=== PATIENT | male | born 1975 | race Hispanic/Latino ===

== ENCOUNTER 2017-07-24 10:18 | Emergency (ER) | payer OTHER ==
--- NOTE | 2017-07-24 13:04 | ER ---
Nurse's Notes [facility] Name: Silvestre Summers Age: 41 yrs Sex: Male : 1975 Arrival Date: 07/24/2017 Time: 10:24 Bed 19 Private MD: Diagnosis: Vertiginous syndromes in diseases classified elsewhere, bilateral Presentation: 07/24 10:38 Presenting complaint: Patient states: south k[place] speaking only; Monday, i started having hj headache, and dizziness; especially when i get off the bed in the morning; denies nausea and vomiting;. Transition of care: patient was not received from another setting of care. Onset of symptoms was July 24, 2017. Care prior to arrival: None. 10:38 Method Of Arrival: Ambulatory 10:38 Acuity: FAMILIA 3 hj Triage Assessment: 10:40 Headache History: Denies prior headaches. General: Appears in no apparent distress. hj uncomfortable, Behavior is calm, cooperative, appropriate for age. Pain: Complains of pain in head Pain Pain began 2-3 days ago. Also complains of. Neuro: Level of Consciousness is awake, alert, obeys commands, Oriented to person, place, time, situation. Historical: - Allergies: 10:40 No Known Allergies; hj - Home Meds: 10:44 atorvastatin 40 mg oral tab 1 tab once daily [Active]; stugeron forte daily [Active]; hj vontrol daily [Active]; - PMHx: 10:44 Hyperlipidemia; hj - PSHx: 10:44 None; hj - Immunization history:: Adult Immunizations up to date. - Social history:: Smoking status: Patient/guardian denies using tobacco. - Family history:: not pertinent. Screenin:55 Abuse screen: Denies threats or abuse. Nutritional screening: No deficits noted. em Tuberculosis screening: No symptoms or risk factors identified. Fall Risk None identified. Assessment: 11:55 General: Appears in no apparent distress. comfortable, Behavior is calm, cooperative, em appropriate for age. Pain: Denies pain. Neuro: Level of Consciousness is awake, alert, obeys commands, Oriented to person, place, time, situation, Appropriate for age Head Charger are equal bilaterally Gait is steady, Speech is normal, Facial symmetry appears normal, Intact Reports dizziness, since Monday, was given some medications from [place], helped a little. Cardiovascular: Capillary refill < 3 seconds Patient's skin is warm and dry. Respiratory: Airway is patent Respiratory effort is even, unlabored, Respiratory pattern is regular, symmetrical. GI: Abdomen is round Patient currently denies nausea, vomiting. : No signs and/or symptoms were reported regarding the genitourinary system. EENT: No signs and/or symptoms were reported regarding the EENT system. Derm: Skin is intact, Skin is pink, warm \T\ dry. Musculoskeletal: Range of motion: intact in all extremities. 12:05 Reassessment: Patient appears in no apparent distress at this time. I agree with above iw assessment by Justin Magana LVN. 12:56 Reassessment: Patient appears in no apparent distress at this time. Patient and/or em family updated on plan of care and expected duration. Pain level reassessed. Patient is alert, oriented x 3, equal unlabored respirations, skin warm/dry/pink. Patient denies pain at this time. 13:13 Reassessment: Patient and/or family updated on plan of care and expected duration. Pain em level reassessed. Patient is alert, oriented x 3, equal unlabored respirations, skin warm/dry/pink. awaiting CT results before discharging pt Patient states symptoms have improved. 14:00 Reassessment: Patient appears in no apparent distress at this time. Patient and/or em family updated on plan of care and expected duration. Pain level reassessed. Patient denies pain at this time. Patient states feeling better. Patient states symptoms have improved. Vital Signs: 10:44 BP 129 / 92; Pulse 79; Resp 18; Temp 97.5(TE); Pulse Ox 100% on R/A; Weight 108.86 kg; hj Height 6 ft. 0 in. (182.88 cm); Pain 3/10; 13:05 BP 125 / 95; Pulse 68; Resp 18; Pulse Ox 99% on R/A; em 14:00 BP 120 / 97; Pulse 64; Resp 16; Temp 98.3(TE); Pulse Ox 99% on R/A; Pain 0/10; em 10:44 Body Mass Index 32.55 (108.86 kg, 182.88 cm) ED Course: 10:24 Patient arrived in ED. mr 10:39 Triage completed. hj 10:40 Arm band placed on left wrist. hj 11:37 Justin Magana LVN is Primary Nurse. em 11:39 Kieran Hagen MD is Attending Physician. [facility] 11:55 Patient has correct armband on for positive identification. Bed in low position. Call em light in reach. Side rails up X2. 12:25 No provider procedures requiring assistance completed. em 13:03 Ismael Cole MD is Referral Physician. [facility] 13:15 CT completed. Patient tolerated procedure well. Patient moved to CT via wheelchair. Patient moved back from CT. 13:15 CT Head Brain wo Cont In Process Unspecified. EDMS 14:13 Patient did not have IV access during this emergency room visit. em Administered Medications: 13:10 Drug: Meclizine 50 mg Route: PO; em 13:42 Follow up: Response: No adverse reaction em Outcome: 13:03 Discharge ordered by . [facility] 14:13 Discharged to home ambulatory. em 14:13 Condition: good 14:13 Discharge instructions given to patient, Instructed on discharge instructions, follow up and referral plans. medication usage, Demonstrated understanding of instructions, follow-up care, medications, Prescriptions given X 1. 14:14 Patient left the ED. em Signatures: Dispatcher [employer] EDOR Kieran Hagen MD MD cha Rivera, Maria Angela Miller Justin Magana LVN LVN em Hoa Cook, RN KAR Shabbir Juarez RN RN
--- NOTE | 2017-07-24 13:04 | EDPHYS ---
Physician Documentation [facility] Name: Silvestre Summers Age: 41 yrs Sex: Male : 1975 Arrival Date: 07/24/2017 Time: 10:24 Bed 19 Private MD: DOMINIC Physician Kieran Hagen HPI: 07/24 12:59 This 41 yrs old Male presents to ER via Ambulatory with complaints of agnes Dizziness, Headache. 12:59 The patient presents with dizziness, vertigo. Onset: The symptoms/episode agnes began/occurred 3 day(s) ago. Context: occurred at home. Modifying factors: The symptoms are alleviated by Antivert, the symptoms are aggravated by movement of head, changing position. Associated signs and symptoms: Pertinent positives: headache, nausea. Severity of symptoms: At their worst the symptoms were mild in the emergency department the symptoms are unchanged. Patient's baseline: Neuro: alert and fully oriented. The patient has experienced similar episodes in the past, a few times. Historical: - Allergies: 10:40 No Known Allergies; hj - Home Meds: 10:44 atorvastatin 40 mg oral tab 1 tab once daily [Active]; stugeron forte daily [Active]; hj vontrol daily [Active]; - PMHx: 10:44 Hyperlipidemia; hj - PSHx: 10:44 None; hj - Immunization history:: Adult Immunizations up to date. - Social history:: Smoking status: Patient/guardian denies using tobacco. - Family history:: not pertinent. ROS: 12:59 Constitutional: Negative for fever, chills, and weight loss, Eyes: Negative for injury, agnes pain, redness, and discharge, ENT: Negative for injury, pain, and discharge, Neck: Negative for injury, pain, and swelling, Cardiovascular: Negative for chest pain, palpitations, and edema, Respiratory: Negative for shortness of breath, cough, wheezing, and pleuritic chest pain, Abdomen/GI: Negative for abdominal pain, nausea, vomiting, diarrhea, and constipation, Back: Negative for injury and pain, : Negative for injury, bleeding, discharge, and swelling, MS/Extremity: Negative for injury and deformity, Skin: Negative for injury, rash, and discoloration, Psych: Negative for depression, anxiety, suicide ideation, homicidal ideation, and hallucinations, Allergy/Immunology: Negative for hives, rash, and allergies, Endocrine: Negative for neck swelling, polydipsia, polyuria, polyphagia, and marked weight changes, Hematologic/Lymphatic: Negative for swollen nodes, abnormal bleeding, and unusual bruising. 12:59 Neuro: Positive for dizziness, headache, tinnitus. Exam: 12:59 Constitutional: This is a well developed, well nourished patient who is awake, alert, agnes and in no acute distress. Head/Face: Normocephalic, atraumatic. Eyes: Pupils equal round and reactive to light, extra-ocular motions intact. Lids and lashes normal. Conjunctiva and sclera are non-icteric and not injected. Cornea within normal limits. Periorbital areas with no swelling, redness, or edema. ENT: Nares patent. No nasal discharge, no septal abnormalities noted. Tympanic membranes are normal and external auditory canals are clear. Oropharynx with no redness, swelling, or masses, exudates, or evidence of obstruction, uvula midline. Mucous membranes moist. Neck: Trachea midline, no thyromegaly or masses palpated, and no cervical lymphadenopathy. Supple, full range of motion without nuchal rigidity, or vertebral point tenderness. No Meningismus. Chest/axilla: Normal chest wall appearance and motion. Nontender with no deformity. No lesions are appreciated. Cardiovascular: Regular rate and rhythm with a normal S1 and S2. No gallops, murmurs, or rubs. Normal PMI, no JVD. No pulse deficits. Respiratory: Lungs have equal breath sounds bilaterally, clear to auscultation and percussion. No rales, rhonchi or wheezes noted. No increased work of breathing, no retractions or nasal flaring. Abdomen/GI: Soft, non-tender, with normal bowel sounds. No distension or tympany. No guarding or rebound. No evidence of tenderness throughout. Back: No spinal tenderness. No costovertebral tenderness. Full range of motion. Male : Normal genitalia with no discharge or lesions. Skin: Warm, dry with normal turgor. Normal color with no rashes, no lesions, and no evidence of cellulitis. MS/ Extremity: Pulses equal, no cyanosis. Neurovascular intact. Full, normal range of motion. Neuro: Awake and alert, GCS 15, oriented to person, place, time, and situation. Cranial nerves II-XII grossly intact. Motor strength 5/5 in all extremities. Sensory grossly intact. Cerebellar exam normal. Normal gait. Psych: Awake, alert, with orientation to person, place and time. Behavior, mood, and affect are within normal limits. Vital Signs: 10:44 BP 129 / 92; Pulse 79; Resp 18; Temp 97.5(TE); Pulse Ox 100% on R/A; Weight 108.86 kg; hj Height 6 ft. 0 in. (182.88 cm); Pain 3/10; 13:05 BP 125 / 95; Pulse 68; Resp 18; Pulse Ox 99% on R/A; em 14:00 BP 120 / 97; Pulse 64; Resp 16; Temp 98.3(TE); Pulse Ox 99% on R/A; Pain 0/10; em 10:44 Body Mass Index 32.55 (108.86 kg, 182.88 cm) MDM: 11:39 Patient medically screened. [facility] 07/24 13:07 Order name: Urine Dipstick--Ancillary (enter results) 07/24 12:59 Order name: CT Head Brain wo Cont; Complete Time: 13:34 [facility] Administered Medications: 13:10 Drug: Meclizine 50 mg Route: PO; em 13:42 Follow up: Response: No adverse reaction em Disposition: 07/24/17 13:03 Discharged to Home. Impression: Vertiginous syndromes in diseases classified elsewhere, bilateral. - Condition is Stable. - Discharge Instructions: General Headache Without Cause, Vertigo, Vertigo, [id number], General Headache Without Cause, [id number]. - Prescriptions for Meclizine 25 mg Oral Tablet - take 1 tablet by ORAL route every 8 hours As needed; 30 tablet. - Medication Reconciliation Form, Thank You Letter, Antibiotic Education, Prescription Opioid Use, Work release form form. - Follow up: Private Physician; When: 2 - 3 days; Reason: Recheck today's complaints, Continuance of care, Re-evaluation by your physician. Follow up: Ismael Cole MD; When: 2 - 3 days; Reason: Recheck today's complaints, Continuance of care, Re-evaluation by your physician. - Problem is new. - Symptoms have improved. Signatures: Dispatcher [employer] Kieran Bowman MD MD cha Munoz, Edgar, LIQUIFIED NATURAL GAS SPECIALIST LIQUIFIED NATURAL GAS SPECIALIST em Shabbir Juarez, RN RN hj
[2017-07-24] MEDS ORDERED: MECLIZINE HCL 12.5 MG TAB ONE (13:20)
--- NOTE | 2017-07-24 13:28 | RAD REPORT ---
EXAM DESCRIPTION: CT - Head Brain Wo Cont - 07/24/2017 1:15 pm CLINICAL HISTORY: Headache and dizziness COMPARISON: None. TECHNIQUE: Computed axial tomography of the head was obtained. IV contrast was not requested. All CT scans are performed using dose optimization technique as appropriate and may include automated exposure control or mA/KV adjustment according to patient size. FINDINGS: An intracranial bleed is not seen . The ventricles are normal in caliber. No extra-axial fluid collection is noted. Fluid within the sinuses/ mastoids is not seen. IMPRESSION: No acute intracranial abnormality is seen. If patient's symptoms persist MRI of the bra in would be recommended.
[2017-07-24 14:02] LABS: Urine Blood NEGATIVE (NEG); Urine Glucose NEGATIVE (NEG); Urine Protein NEGATIVE (NEG); Urine Specific Gravity 1.015 (1.005-1.030)
== END 2017-07-24 14:14 | disposition home or self-care (01) ==
LOC: ER 10:18
DX: H81.93 Unspecified disorder of vestibular function, bilateral (principal); R51 Headache; E78.5 Hyperlipidemia, unspecified
CPT/HCPCS: 70450; 81003; 99284